=== PATIENT | male | born 1950 | race Caucasian/White ===

== ENCOUNTER 2017-05-22 13:06 | Outpatient (CLI) | payer MEDICARE, BC ==
[~2017-05-22] VITALS: Ht 172.7 cm; Wt 72.7 kg
[~2017-05-22 13:06] MED LIST: HYDROCODONE-APA1 TAB PO; NORVASC10 MG PO
--- NOTE | 2017-05-22 14:15 | NUR ---
THIS NURSE ENTERS ROOM TO PREPARE TO PERFORM BLADDER SCAN OF PATIENT, PATIENT INFORMED THAT A PRE AND POST VOID BLADDER SCAN IS ORDERED, PATIENT STATES THAT HE JUST VOIDED IN THE TOILET LESS THAN TEN MINUTES AGO. PATIENT AGREEABLE TO DRINKING WATER AND STAYING FOR 30-45 MINUTES BEFORE SCANNING
[2017-05-22 14:28] VITALS: BP 114/76; Ht 172.7 cm; Wt 72.7 kg
--- NOTE | 2017-05-22 14:45 | NUR ---
PRE VOID SCAN PERFORMED, PREVOID SCAN SHOWS 484 ML, PATIENT WALKS TO BATHROOM AND VOIDS. PATIENT STATES "I DRIBBLED A LITTLE, BUT NOT MUCH." PATIENT IMMEDIATELY LIES DOWN ON STRETCHER, POST VOID SCAN PERFORMED. POST VOID SCAN SHOWS 434 ML
--- NOTE | 2017-05-22 15:00 | NUR ---
RESULTS FAXED TO DR GOTTLIEB'S OFFICE
== END 2017-05-22 14:55 | disposition home or self-care (01) ==
LOC: D.OPS 13:06
DX: R33.9 Retention of urine, unspecified (principal)